=== PATIENT | female | born 1950 | race Caucasian/White ===

== ENCOUNTER → 2017-01-24 | Outpatient (CLI) | payer MEDICARE ==
[~2017-01-24] MED LIST: AMOX875T PO; LEVO25TA4 PO; METH10TA PO; VERA80TA PO; ZOFR8TAB4 SL
--- NOTE | 2017-01-25 17:59 | EKG ---
Date Performed: 01/24/2017 Time Performed: 14:31:52 PTAGE: 66 years EKG: Sinus arrhythmia. Normal ECG NO PREVIOUS TRACING DOCTOR: Fredo Osborne Interpretating Date/Time 01/25/2017 17:57:34
== END ==
LOC: HCAV 14:23
DX: I49.8 Other specified cardiac arrhythmias (principal); T40.3X5A Adverse effect of methadone, initial encounter
CPT/HCPCS: 93005